=== PATIENT | male | born 1960 | race Caucasian/White ===

== ENCOUNTER 2018-07-12 20:34 | Emergency (ER) | payer OTHER ==
[~2018-07-12] VITALS: Ht 185.4 cm; Wt 95.0 kg
[2018-07-12] MEDS ORDERED: normal saline 1000ML IV soln IVB ONE (21:40)
[2018-07-12] MEDS ORDERED: LORazepam 2 mg/ml vial IV ONE (21:45)
[2018-07-12 22:05] LABS: BASOPHILS % (AUTO) 0.2 % (0-1); EOSINOPHILS # (AUTO) 0.3 X10'3 (0-0.9); EOSINOPHILS % (AUTO) 2.5 % (0-6); HEMATOCRIT 48.7 % (42.0-52.0); HEMOGLOBIN 16.6 g/dl (14.0-17.9); LYMPHOCYTES # (AUTO) 1.5 X10'3 (1.1-4.8); LYMPHOCYTES % (AUTO) 11.9 % (21-51); MEAN CORPUSCULAR VOLUME 85.2 FL (78-98); MEAN PLATELET VOLUME 8.6 FL (7.4-10.4); MONOCYTES # (AUTO) 0.4 X10'3 (0-0.9); MONOCYTES % (AUTO) 3.4 % (2-12); NEUTROPHILS # (AUTO) 10.4 X10'3 (1.8-7.7); PLATELET COUNT 271 X10'3 (140-440); RED BLOOD COUNT 5.72 X10'6 (4.70-6.10); RED CELL DISTRIBUTION WIDTH 14.1 % (11.5-14.5); WHITE BLOOD COUNT 12.7 X10'3 (4.5-11.0)
[2018-07-12 22:21] LABS: ALANINE AMINOTRANSFERASE 34 U/L (12-78); ALBUMIN 3.5 G/DL (3.4-5.0); ALBUMIN/GLOBULIN RATIO 0.9 (1.1-1.5); ALKALINE PHOSPHATASE 81 IU/L (46-116); ANION GAP 10 (8-16); ASPARTATE AMINO TRANSFERASE 19 U/L (10-37); BILIRUBIN,TOTAL 0.6 MG/DL (0.1-1.0); BLOOD UREA NITROGEN 16 MG/DL (7-18); BUN/CREATININE RATIO 14.7 (5.4-32.0); CALCIUM 9.9 MG/DL (8.5-10.1); CHLORIDE 101 MMOL/L (99-107); CREATININE 1.09 MG/DL (0.60-1.10); GLUCOSE 161 MG/DL (70-104); POTASSIUM 4.5 MMOL/L (3.5-5.1); SODIUM 138 MMOL/L (135-145); TOTAL CARBON DIOXIDE 27.4 MMOL/L (24-32); TOTAL PROTEIN 7.3 G/DL (6.4-8.2); eGFR 70 ML/MIN
[2018-07-12 22:26] LABS: ACETAMINOPHEN < 2.0 UG/ML (10-30); ETHANOL < 0.010 GM/DL (0.0-0.010)
[2018-07-12 22:33] LABS: LARGE PLATELETS MODERATE; PLATELET ESTIMATE NORMAL
[2018-07-12] MEDS ORDERED: LORazepam 1 MG tablet PO ONE (22:55)
[2018-07-12 23:23] LABS: CLARITY,URINE CLEAR (Clear); COLOR,URINE YELLOW (Yellow); GLUCOSE, URINE NEGATIVE (Neg); KETONES,URINE NEGATIVE (Neg); LEUKOCYTE ESTERASE ,URINE NEGATIVE (Neg); NITRITES, URINE NEGATIVE (Neg); OCCULT BLOOD,URINE NEGATIVE (Neg); PROTEIN,URINE NEGATIVE (Neg); UROBILINOGEN,URINE 0.2 E.U/dL (0.2-1.0)
[2018-07-12 23:29] LABS: UA COLLECTION TYPE URINAL
[2018-07-12 23:36] LABS: URINE AMPHETAMINE SCREEN NEGATIVE (Neg); URINE BARBITUATE SCREEN NEGATIVE (Neg); URINE BENZODIAZEPINES SCREEN NEGATIVE (Neg); URINE CANNABINOID SCREEN POSITIVE (Neg); URINE COCAINE SCREEN NEGATIVE (Neg); URINE METHADONE SCREEN NEGATIVE (Neg); URINE OPIATE SCREEN NEGATIVE (Neg); URINE PHENCYCLIDINE SCREEN NEGATIVE (Neg)
[2018-07-12 23:54] VITALS: BP 127/79
== END 2018-07-12 23:58 | disposition home or self-care (01) ==
LOC: ER 20:35
DX: T40.7X1A Poisoning by cannabis (derivatives), accidental (unintentional), initial encounter (principal); J45.909 Unspecified asthma, uncomplicated; F41.9 Anxiety disorder, unspecified; Y92.9 Unspecified place or not applicable
CPT/HCPCS: 36415; 80053; 80305; 80320; 80329; 81003; 85025; 93005; 99285

== ENCOUNTER 2021-11-08 09:15 | Inpatient (IN) | payer BC, OTHER ==
[~2021-11-08] VITALS: Ht 182.9 cm; Wt 82.2 kg
[2021-11-08 09:49] LABS: BASOPHILS % (AUTO) 0.4 % (0-1); EOSINOPHILS # (AUTO) 0.5 X10'3 (0-0.9); HEMATOCRIT 42.3 % (42.0-52.0); HEMOGLOBIN 14.6 g/dl (14.0-17.9); LYMPHOCYTES # (AUTO) 1.4 X10'3 (1.1-4.8); LYMPHOCYTES % (AUTO) 23.8 % (21-51); MEAN CORPUSCULAR HEMOGLOBIN 29.3 PG (27.0-31.0); MEAN CORPUSCULAR HGB CONC 34.5 g/dL (33.0-36.5); MEAN CORPUSCULAR VOLUME 84.9 FL (78-98); MEAN PLATELET VOLUME 7.8 FL (7.4-10.4); MONOCYTES # (AUTO) 0.7 X10'3 (0-0.9); MONOCYTES % (AUTO) 11.3 % (2-12); NEUTROPHILS # (AUTO) 3.3 X10'3 (1.8-7.7); NEUTROPHILS % (AUTO) 55.5 % (42-75); PLATELET COUNT 335 X10'3 (140-440); RED BLOOD COUNT 4.98 X10'6 (4.70-6.10); WHITE BLOOD COUNT 5.9 X10'3 (4.5-11.0)
[2021-11-08 10:02] LABS: CLARITY,URINE CLEAR (Clear); COLOR,URINE YELLOW (Yellow); GLUCOSE, URINE NEGATIVE (Neg); KETONES,URINE NEGATIVE (Neg); LEUKOCYTE ESTERASE ,URINE NEGATIVE (Neg); NITRITES, URINE NEGATIVE (Neg); OCCULT BLOOD,URINE SMALL (Neg); PROTEIN,URINE NEGATIVE (Neg); UROBILINOGEN,URINE 0.2 E.U/dL (0.2-1.0)
[2021-11-08 10:03] LABS: UA COLLECTION TYPE STRAIGHT CATH
[2021-11-08 10:09] LABS: BACTERIA,URINE NONE SEEN /HPF (Neg)
[2021-11-08 10:10] LABS: MUCUS STRANDS FEW /LPF (Neg); SQUAMOUS EPITHELIAL CELL,UR FEW /LPF (FEW); WBC CLUMPS,URINE FEW /HPF (NEGATIVE)
[2021-11-08 10:16] LABS: ALANINE AMINOTRANSFERASE 20 U/L (12-78); ALBUMIN 3.3 G/DL (3.4-5.0); ALBUMIN/GLOBULIN RATIO 0.8 (1.1-1.5); ALKALINE PHOSPHATASE 74 IU/L (46-116); ANION GAP 7 (8-16); ASPARTATE AMINO TRANSFERASE 13 U/L (10-37); BILIRUBIN,TOTAL 0.5 MG/DL (0.1-1.0); BLOOD UREA NITROGEN 14 MG/DL (7-18); CALCIUM 9.1 MG/DL (8.5-10.1); CHLORIDE 104 MMOL/L (99-107); CREATININE 1.27 MG/DL (0.60-1.10); GLUCOSE 118 MG/DL (70-104); LIPASE 189 U/L (73-393); POTASSIUM 3.8 MMOL/L (3.5-5.1); SODIUM 140 MMOL/L (135-145); TOTAL CARBON DIOXIDE 28.8 MMOL/L (24-32); TOTAL PROTEIN 7.5 G/DL (6.4-8.2); eGFR 58 ML/MIN
[2021-11-08] MEDS ORDERED: cephalexin 500mg capsule PO ONE (10:35)
[2021-11-08] MEDS ORDERED: ondansetron/PF 4mg/2ml inj IV ONE ×2 (10:40→12:05)
[2021-11-08] MEDS: morphine 4 MG/ML inj SYRINge IV PRN ×4 (10:44→18:36)
--- NOTE | 2021-11-08 10:54 | NUR ---
TO CT AT THIS TIME.
[2021-11-08] MEDS ORDERED: CefTRIAXone 2gm/D5W 50ml BAG 50 ML IV ONE (12:05)
[2021-11-08] MEDS ORDERED: VENL150C2 PO (12:26)
[2021-11-08] MEDS ORDERED: FLUT1DIS15 INH (12:26)
[2021-11-08] MEDS ORDERED: CHOL200012 PO (12:26)
[2021-11-08] MEDS ORDERED: PRAZ2CAP2 PO (12:26)
[2021-11-08] MEDS ORDERED: ONDA8TAB13 PO (12:26)
[2021-11-08] MEDS ORDERED: FLO0.4C PO (12:26)
[2021-11-08] MEDS ORDERED: ALBU8HFA PO (12:26)
[2021-11-08] MEDS ORDERED: ondansetron 4mg rapidly disintigrating tab PO PRN (12:55)
[2021-11-08] MEDS ORDERED: acetaminophen 650mg rectal suppository RC PRN (12:55)
[2021-11-08] MEDS ORDERED: magnesium 4gm in 100ml NS 100 ML IV PRN (12:55)
[2021-11-08] MEDS ORDERED: magnesium hydroxide 30ml (MOM) UD suspension PO PRN (12:55)
[2021-11-08] MEDS ORDERED: ondansetron/PF 4mg/2ml inj IV PRN (12:55)
[2021-11-08] MEDS ORDERED: potassium Cl 20 mEq SR tablet PO PRN ×2 (12:55)
[2021-11-08] MEDS ORDERED: acetaminophen 325mg tablet PO PRN ×2 (12:55)
[2021-11-08] MEDS ORDERED: HYDROmorphone/PF 0.2 MG/ML SYRINGE IV PRN (12:55)
[2021-11-08] MEDS ORDERED: metoclopramide 5 mg/ml inj IV PRN (12:55)
[2021-11-08] MEDS ORDERED: magnesium 2GM in 50ml NS 50 ML IV PRN (12:55)
[2021-11-08] MEDS ORDERED: HYDROcodone/acetaminophen 5mg/325mg tablet PO PRN (12:55)
[2021-11-08] MEDS ORDERED: mag hydrox/Alum hydrox/simeth 30ml oral suspension PO PRN (12:55)
[2021-11-08] MEDS ORDERED: bisacodyl 10mg suppository rectal RC PRN (12:55)
[2021-11-08] MEDS ORDERED: potassium CL 10mEq/100ml bag 100 ML IV PRN (12:55)
[2021-11-08] MEDS ORDERED: magnesium Cl slow-release 64mg tablet PO PRN (12:55)
[2021-11-08] MEDS: normal saline 1000ml 1,000 ML IV SCH ×2 (13:16→23:03)
[2021-11-08] MEDS: tamsulosin 0.4mg capsule PO SCH ×2 (13:16→20:21)
[2021-11-08 13:30] LABS: POTASSIUM 3.9 MMOL/L (3.5-5.1)
[2021-11-08 13:34] LABS: APTT 29 SECONDS (22-32)
[2021-11-08] MEDS ORDERED: albuterol 2.5 MG/3 ML nebule NEB PRN (13:45)
[2021-11-08] MEDS: HYDROcodone/acetaminophen 10/325mg tab PO PRN ×2 (14:16→23:02)
[2021-11-08] MEDS ORDERED: ringers solution, lacted 1,000 ML IV ONE (15:20)
[2021-11-08] MEDS: albuterol 2.5 MG/3 ML nebule NEB SCH ×2 (16:48→20:10)
--- NOTE | 2021-11-08 18:22 | NUR ---
patient received at this time alert and verbally responsive, patient hooked up to the cardiac montior, bed in lowest position, call light in reach patient is moaning in pain
--- NOTE | 2021-11-08 19:10 | NUR ---
called to the floor for report LUBNA tellez states that she will give me a call back
--- NOTE | 2021-11-08 19:41 | NUR ---
received report for Leonarda, awaiting pt arrival. Addendum: 11/08/21 at 1941 by Sukhjinder Freire RN Amended: Links added.
[2021-11-08] MEDS: docusate sod 100mg capsule PO SCH (20:00)
[2021-11-08] MEDS ORDERED: non-formulary drug (Fluticasone/Salmeterol (Advair 500-50 Diskus) 1 PUFFS) INH SCH (20:00)
[2021-11-08] MEDS: K and/or MAG REPLACEMENT MC SCH (20:00)
[2021-11-08] MEDS: budesonide 0.5mg/2ml UD nebule IH SCH (20:11)
[2021-11-08 20:15] VITALS: BP 134/90
[2021-11-08] MEDS: HYDROmorphone inj. 0.5 MG/0.5 ML DISP.SYRIN IV PRN (20:20)
--- NOTE | 2021-11-08 20:28 | NUR ---
turns self with ease, c/o pain, and occ sharp abd pain, bladder scanned shows 180ml urine, has not voided since st at 10am. pt will try after pain medication and md will be notified if unable to void. pt wants preop shower in early am not tonight, d/t pain. Addendum: 11/08/21 at 2028 by Sukhjinder Freire RN Amended: Links added.
[2021-11-08] MEDS ORDERED: prazosin 1mg capsule PO SCH (21:00)
[2021-11-08] MEDS ORDERED: temazepam 15mg capsule PO PRN (21:00)
[2021-11-08 22:08] VITALS: BP 137/81
--- NOTE | 2021-11-08 22:10 | NUR ---
PREOP EKG DONE, TO READ, BUT STATES ST ELEVATION IN NOTES. PT VSS DENIES ANY CHEST PAIN, SOB, ARM PAIN OR UPPER BACK PAIN. ALL PAIN IS IN RIGHT FLANK. WAITING FOR EKG RESULTS FROM MD. Addendum: 11/08/21 at 2212 by Sukhjinder Freire RN Amended: Links added.
[2021-11-08 23:25] VITALS: BP 137/89
[2021-11-09] VITALS (9 sets, daily range): BP systolic 126–151; BP diastolic 76–113
[2021-11-09] MEDS: HYDROmorphone inj. 0.5 MG/0.5 ML DISP.SYRIN IV PRN ×3 (00:24→12:27)
--- NOTE | 2021-11-09 00:30 | NUR ---
maalox given for indigestion. per pt request, had large emesis with maalox and grn emesis. wilda burnett, pt states feeling better now, declined additional maalox. cool compress given. Addendum: 11/09/21 at 0048 by Sukhjinder Freire RN Amended: Links added.
[2021-11-09] MEDS: HYDROcodone/acetaminophen 10/325mg tab PO PRN (02:43)
[2021-11-09] MEDS: albuterol 2.5 MG/3 ML nebule NEB SCH ×3 (02:58→15:00)
[2021-11-09] MEDS ORDERED: famotidine 20mg tablet PO ONE (06:00)
--- NOTE | 2021-11-09 06:32 | NUR ---
Problems reprioritized. Patient report given, questions answered & plan of care reviewed with LUBNA Solis. Addendum: 11/09/21 at 0633 by Sukhjinder Freire RN Amended: Links added.
[2021-11-09 06:40] LABS: BASOPHILS % (AUTO) 0.5 % (0-1); EOSINOPHILS # (AUTO) 0.3 X10'3 (0-0.9); HEMATOCRIT 42.3 % (42.0-52.0); HEMOGLOBIN 14.4 g/dl (14.0-17.9); LYMPHOCYTES # (AUTO) 1.8 X10'3 (1.1-4.8); LYMPHOCYTES % (AUTO) 19.2 % (21-51); MEAN CORPUSCULAR HEMOGLOBIN 29.2 PG (27.0-31.0); MEAN CORPUSCULAR HGB CONC 34.1 g/dL (33.0-36.5); MEAN CORPUSCULAR VOLUME 85.6 FL (78-98); MEAN PLATELET VOLUME 8.4 FL (7.4-10.4); MONOCYTES # (AUTO) 1.2 X10'3 (0-0.9); MONOCYTES % (AUTO) 13.1 % (2-12); NEUTROPHILS # (AUTO) 5.9 X10'3 (1.8-7.7); NEUTROPHILS % (AUTO) 64.2 % (42-75); PLATELET COUNT 346 X10'3 (140-440); RED BLOOD COUNT 4.94 X10'6 (4.70-6.10); RED CELL DISTRIBUTION WIDTH 13.8 % (11.5-14.5); WHITE BLOOD COUNT 9.2 X10'3 (4.5-11.0)
[2021-11-09 06:53] LABS: ALANINE AMINOTRANSFERASE 18 U/L (12-78); ALBUMIN 3.2 G/DL (3.4-5.0); ALBUMIN/GLOBULIN RATIO 0.8 (1.1-1.5); ALKALINE PHOSPHATASE 77 IU/L (46-116); ANION GAP 11 (8-16); ASPARTATE AMINO TRANSFERASE 17 U/L (10-37); BILIRUBIN,TOTAL 0.5 MG/DL (0.1-1.0); BLOOD UREA NITROGEN 13 MG/DL (7-18); BUN/CREATININE RATIO 9.1 (5.4-32.0); CALCIUM 7.9 MG/DL (8.5-10.1); CHLORIDE 103 MMOL/L (99-107); CREATININE 1.43 MG/DL (0.60-1.10); GLUCOSE 116 MG/DL (70-104); MAGNESIUM 1.8 MG/DL (1.5-2.4); POTASSIUM 3.6 MMOL/L (3.5-5.1); SODIUM 138 MMOL/L (135-145); TOTAL CARBON DIOXIDE 24.1 MMOL/L (24-32); TOTAL PROTEIN 7.1 G/DL (6.4-8.2); eGFR 51 ML/MIN
[2021-11-09] MEDS ORDERED: iohexol 300 MG/1 ML 50ml polymer ONE (06:59)
--- NOTE | 2021-11-09 07:10 | NUR ---
patient left for surgery no distress noted at this time.
[2021-11-09] MEDS ORDERED: morphine 4 MG/ML inj SYRINge IV PRN (07:15)
[2021-11-09] MEDS ORDERED: labetalol 20mg/4ml (5mg/ml) syringe IV PRN (07:15)
[2021-11-09] MEDS ORDERED: ondansetron/PF 4mg/2ml inj IV PRN (07:15)
[2021-11-09] MEDS ORDERED: midazolam 1 mg/ML 2ml injection ONE (07:15)
[2021-11-09] MEDS ORDERED: hydrALAZINE 20mg/ml inj. IV PRN (07:15)
[2021-11-09] MEDS ORDERED: ringers solution, lacted 1,000 ML IV SCH (07:15)
[2021-11-09] MEDS ORDERED: morphine 2 MG/ML inj. syringe IV PRN (07:15)
[2021-11-09] MEDS ORDERED: fentaNYL/PF 50MCG/1 ML 2ML syringe IV PRN ×2 (07:15)
[2021-11-09] MEDS ORDERED: ondansetron/PF 4mg/2ml inj ONE (07:17)
[2021-11-09] MEDS ORDERED: LIDOcaine 2% (20mg/ml) 5ml vial ONE (07:17)
[2021-11-09] MEDS ORDERED: succinylcholine 20mg/ml inj IV ONE (07:17)
[2021-11-09] MEDS ORDERED: dexamethasone sod phosphate 4mg/ml inj. ONE (07:17)
[2021-11-09] MEDS ORDERED: propofol inj 20 ML IV ONE (07:17)
[2021-11-09] MEDS ORDERED: sevoflurane 250ml liquid IH ONE (07:25)
[2021-11-09] MEDS ORDERED: venlafaxine XR 75mg capsule (Q24H) PO SCH (08:00)
[2021-11-09] MEDS ORDERED: tamsulosin 0.4mg capsule PO SCH (08:00)
[2021-11-09] MEDS ORDERED: CefTRIAXone/D5W-Rocephin 1gm 50 ML IV SCH (08:00)
[2021-11-09] MEDS: K and/or MAG REPLACEMENT MC SCH (08:00)
[2021-11-09] MEDS: docusate sod 100mg capsule PO SCH (08:00)
--- NOTE | 2021-11-09 08:18 | NUR ---
Received from OR via , accompanied by Anesthesiologist MILES and report given by Anesthesiolgist. JAQUELINETIENT WITH 20G PIV IN RIGHT UE RUNNING LR AT 100. ALISON MORA. JOSE ANGEL. SUZYNET WITH 10L MASK ON WITH 100% SATURATIONS. PATIENT COUGHING AND BRINGING UP SPUTUM. CLEAR... Addendum: 11/09/21 at 0835 by Semaj Cabrera RN, RN Amended: Links added.
[2021-11-09] MEDS: budesonide 0.5mg/2ml UD nebule IH SCH (08:30)
[2021-11-09] MEDS: normal saline 1000ml 1,000 ML IV SCH ×2 (08:55→09:37)
--- NOTE | 2021-11-09 09:18 | NUR ---
/SIMIN/PCU/ORTHO/ICU FLOOR. VSS. DRESSINGS INTACT. BED LOW, CALL LIGHT PRESENT AND 2 RAILS UP. RN PRESENT TO ACCEPT CARE OF PATIENT AND REPORT HAS BEEN CALLED. ALL QUESTIONS ANSWERED TO ACCEPTING RN. VSS. DECLINES FURTHER PAIN MEDS. ERRETTE AWARE PATIENT HAS ARRIVED TO ROOM 350. BED LOW AND AFTER SCHOOL TUTOR PRESENT TO SET UP VS. NO DRAINAGE AND PATIENT WITH TOLERABLE PAIN AT THIS TIME. Addendum: 11/09/21 at 0940 by Semaj Fontanez - LUBNA CALVO Amended: Links added.
--- NOTE | 2021-11-09 09:30 | NUR ---
Received from recovery room via , accompanied by nurse Seamj and report given by Semaj. PPATIENT WITH 20G PIV IN RIGHT UE RUNNING LR AT 100. c/o pain, pain med adminisdered as prescribed. VSS. PATient @ 3l nasal canula. PATIENT COUGHING AND BRINGING UP SPUTUM. CLEAR...
--- NOTE | 2021-11-09 11:04 | NUR ---
Message: HI RE:350B/THUM PATIENT CAME FROM SURGERY A FEW HOURS AGO NOW HE IS C/O SORE THROAT AND B/P IS 155/93, 129/101, 145/105. LUBNA MONTERROSO [id number]
[2021-11-09] MEDS ORDERED: amLODIPine 5mg tablet PO ONE (11:30)
[2021-11-09] MEDS ORDERED: CEFD300C3 PO (13:07)
[2021-11-09] MEDS ORDERED: HYDR-3965 PO (13:07)
[2021-11-09] MEDS ORDERED: LACT1CAP26 PO (13:07)
[2021-11-09] MEDS ORDERED: NOR5T PO (13:07)
[2021-11-10] MEDS ORDERED: amLODIPine 5mg tablet PO SCH (08:00)
== END 2021-11-09 15:30 | disposition home or self-care (01) | DRG 690 ==
LOC: ER 09:16 → ED HOLD 13:03 → SUR 3N 19:48
PROVIDERS: ADMIT Family Medicine; ATTEND Family Medicine
PROC: 0TC68ZZ Extirpation of Matter from Right Ureter, Via Natural or Artificial Opening Endoscopic (ICD-10-PCS; principal; 2021-11-09 07:25)
DX: N13.6 Pyonephrosis (principal); N20.2 Calculus of kidney with calculus of ureter; F12.90 Cannabis use, unspecified, uncomplicated; Z20.822 Contact with and (suspected) exposure to COVID-19; N17.9 Acute kidney failure, unspecified; I10 Essential (primary) hypertension; K21.9 Gastro-esophageal reflux disease without esophagitis; F32.A Depression, unspecified; J45.909 Unspecified asthma, uncomplicated; F41.9 Anxiety disorder, unspecified; N40.0 Benign prostatic hyperplasia without lower urinary tract symptoms; Z80.42 Family history of malignant neoplasm of prostate; Z87.442 Personal history of urinary calculi
CPT/HCPCS: 96365; 96375; 99285; Z7506; 36415; 74176; 76000; 80053; 81001; 83690; 83735; 84132; 85025; 85610; 85730; 87081; 87088; 87635; 93005; 94640; 94760; A4618; C1769; G0378; J0330; J0696; J1100; J1170; J2250; J2270; J2405; J2704; J3490; J7030; J7120; Q9967

== ENCOUNTER 2021-11-16 05:02 | Emergency (ER) | payer BC ==
[~2021-11-16] VITALS: Ht 182.9 cm; Wt 96.6 kg
[~2021-11-16 05:02] MED LIST: ALBU8HFA PO; CEFD300C3 PO; CHOL200012 PO; FLO0.4C PO; FLUT1DIS15 INH; HYDR-3965 PO; LACT1CAP26 PO; NOR5T PO; ONDA8TAB13 PO; PRAZ2CAP2 PO; VENL150C2 PO
[2021-11-16] MEDS ORDERED: ketorolac trometh inj. 60 MG/2 ML VIAL IM ONE (05:40)
[2021-11-16 06:03] LABS: BASOPHILS % (AUTO) 0.6 % (0-1); EOSINOPHILS # (AUTO) 0.7 X10'3 (0-0.9); EOSINOPHILS % (AUTO) 8.8 % (0-6); HEMATOCRIT 42.2 % (42.0-52.0); HEMOGLOBIN 14.2 g/dl (14.0-17.9); LYMPHOCYTES # (AUTO) 1.9 X10'3 (1.1-4.8); LYMPHOCYTES % (AUTO) 24.2 % (21-51); MEAN CORPUSCULAR HEMOGLOBIN 28.4 PG (27.0-31.0); MEAN CORPUSCULAR HGB CONC 33.8 g/dL (33.0-36.5); MEAN PLATELET VOLUME 7.4 FL (7.4-10.4); MONOCYTES # (AUTO) 0.7 X10'3 (0-0.9); NEUTROPHILS # (AUTO) 4.5 X10'3 (1.8-7.7); NEUTROPHILS % (AUTO) 57.4 % (42-75); PLATELET COUNT 381 X10'3 (140-440); RED BLOOD COUNT 5.02 X10'6 (4.70-6.10); RED CELL DISTRIBUTION WIDTH 14.2 % (11.5-14.5); WHITE BLOOD COUNT 7.8 X10'3 (4.5-11.0)
[2021-11-16 06:04] LABS: CLARITY,URINE SLIGHTLY CLOUDY (Clear); COLOR,URINE YELLOW (Yellow); GLUCOSE, URINE NEGATIVE (Neg); KETONES,URINE NEGATIVE (Neg); LEUKOCYTE ESTERASE ,URINE NEGATIVE (Neg); NITRITES, URINE NEGATIVE (Neg); OCCULT BLOOD,URINE LARGE (Neg); PH,URINE 5.5 (4.8-8.0); PROTEIN,URINE 100 mg/dl (Neg); UROBILINOGEN,URINE 0.2 E.U/dL (0.2-1.0)
[2021-11-16 06:14] LABS: UA COLLECTION TYPE CLN CATCH MIDSTREAM
[2021-11-16 06:23] LABS: ALANINE AMINOTRANSFERASE 21 U/L (12-78); ALBUMIN 3.1 G/DL (3.4-5.0); ALBUMIN/GLOBULIN RATIO 0.9 (1.1-1.5); ALKALINE PHOSPHATASE 86 IU/L (46-116); ANION GAP 10 (8-16); ASPARTATE AMINO TRANSFERASE 10 U/L (10-37); BILIRUBIN,TOTAL 0.2 MG/DL (0.1-1.0); BLOOD UREA NITROGEN 18 MG/DL (7-18); BUN/CREATININE RATIO 17.3 (5.4-32.0); CALCIUM 8.9 MG/DL (8.5-10.1); CHLORIDE 105 MMOL/L (99-107); CREATININE 1.04 MG/DL (0.60-1.10); GLUCOSE 109 MG/DL (70-104); SODIUM 140 MMOL/L (135-145); TOTAL CARBON DIOXIDE 24.9 MMOL/L (24-32); TOTAL PROTEIN 6.7 G/DL (6.4-8.2); eGFR 73 ML/MIN
[2021-11-16 06:33] LABS: RBC,URINE TNTC /HPF (0-2); WBC,URINE 20-30 /HPF (0-4)
[2021-11-16 06:34] LABS: BACTERIA,URINE FEW /HPF (Neg); CAL OXALATE CRYSTALS 1+ /HPF (NEGATIVE); SQUAMOUS EPITHELIAL CELL,UR FEW /LPF (FEW); WBC CLUMPS,URINE FEW /HPF (NEGATIVE)
[2021-11-16 06:35] VITALS: BP 107/78
--- NOTE | 2021-11-16 06:40 | NUR ---
pt states," pain about an 8-9 on painscale. i've been peeing frequently, and it wilson really bad." will inform dr. mccain.
[2021-11-16] MEDS ORDERED: phenazopyridine 100mg tablet PO ONE (06:45)
--- NOTE | 2021-11-16 06:45 | NUR ---
please see new order
[2021-11-16] MEDS ORDERED: PHEN-716 PO (06:53)
[2021-11-16] MEDS ORDERED: CEPH-585 PO (06:53)
[2021-11-16] MEDS ORDERED: cephalexin 500mg capsule PO ONE (06:55)
--- NOTE | 2021-11-18 10:36 | NUR ---
Patient notified regarding need to be placed on a different antibiotic per Dr. Paulino Goodwin. RX: Fosfomycin 3 g PO x1 0 refills Patient requested medication to be called into [facility] in [place]. Called and left voicemail message for new medication.
== END 2021-11-16 07:49 | disposition home or self-care (01) ==
LOC: ER 05:03
DX: N30.90 Cystitis, unspecified without hematuria (principal); R11.0 Nausea; M54.50 Low back pain, unspecified; J45.909 Unspecified asthma, uncomplicated; F41.9 Anxiety disorder, unspecified; F12.90 Cannabis use, unspecified, uncomplicated; Z87.442 Personal history of urinary calculi; Z79.2 Long term (current) use of antibiotics; Z79.899 Other long term (current) drug therapy
CPT/HCPCS: 36415; 80053; 81001; 85025; 87088; 96372; 99283; J1885; 87077; 87186

== ENCOUNTER 2021-12-02 03:18 | Observation (INO) | payer BC ==
[~2021-12-02] VITALS: Ht 182.9 cm; Wt 97.7 kg
[~2021-12-02 03:18] MED LIST changes: +CEPH-585 PO; +PHEN-716 PO; -VENL150C2 PO; +VENL150C4 PO
[2021-12-02] MEDS ORDERED: morphine 4 MG/ML inj SYRINge IV ONE ×2 (04:10→06:25)
[2021-12-02] MEDS ORDERED: ondansetron/PF 4mg/2ml inj IV ONE (04:10)
[2021-12-02 04:57] LABS: ALANINE AMINOTRANSFERASE 26 U/L (12-78); ALBUMIN 3.5 G/DL (3.4-5.0); ALBUMIN/GLOBULIN RATIO 0.9 (1.1-1.5); ALKALINE PHOSPHATASE 90 IU/L (46-116); ANION GAP 11 (8-16); ASPARTATE AMINO TRANSFERASE 17 U/L (10-37); BILIRUBIN,TOTAL 0.5 MG/DL (0.1-1.0); BLOOD UREA NITROGEN 13 MG/DL (7-18); BUN/CREATININE RATIO 15.5 (5.4-32.0); CHLORIDE 102 MMOL/L (99-107); CREATININE 0.84 MG/DL (0.60-1.10); GLUCOSE 118 MG/DL (70-104); MONOCYTES # (AUTO) 0.9 X10'3 (0-0.9); PLATELET COUNT 321 X10'3 (140-440); POTASSIUM 3.5 MMOL/L (3.5-5.1); SODIUM 139 MMOL/L (135-145); TOTAL CARBON DIOXIDE 26.4 MMOL/L (24-32); TOTAL PROTEIN 7.4 G/DL (6.4-8.2); WHITE BLOOD COUNT 9.9 X10'3 (4.5-11.0); eGFR > 90 ML/MIN
[2021-12-02 05:00] LABS: BASOPHILS # (AUTO) 0.1 X10'3 (0-0.2); BASOPHILS % (AUTO) 0.5 % (0-1); EOSINOPHILS # (AUTO) 0.7 X10'3 (0-0.9); EOSINOPHILS % (AUTO) 6.7 % (0-6); HEMATOCRIT 42.1 % (42.0-52.0); HEMOGLOBIN 14.3 g/dl (14.0-17.9); LYMPHOCYTES % (AUTO) 20.2 % (21-51); MEAN CORPUSCULAR HEMOGLOBIN 28.5 PG (27.0-31.0); MEAN CORPUSCULAR VOLUME 83.7 FL (78-98); MEAN PLATELET VOLUME 9.3 FL (7.4-10.4); MONOCYTES % (AUTO) 9.5 % (2-12); NEUTROPHILS # (AUTO) 6.2 X10'3 (1.8-7.7); NEUTROPHILS % (AUTO) 63.1 % (42-75); RED BLOOD COUNT 5.02 X10'6 (4.70-6.10); RED CELL DISTRIBUTION WIDTH 14.2 % (11.5-14.5)
[2021-12-02 05:54] LABS: CLARITY,URINE CLEAR (Clear); COLOR,URINE YELLOW (Yellow); GLUCOSE, URINE NEGATIVE (Neg); KETONES,URINE TRACE mg/dl (Neg); LEUKOCYTE ESTERASE ,URINE NEGATIVE (Neg); NITRITES, URINE NEGATIVE (Neg); OCCULT BLOOD,URINE NEGATIVE (Neg); PROTEIN,URINE NEGATIVE (Neg); UROBILINOGEN,URINE 0.2 E.U/dL (0.2-1.0)
[2021-12-02 06:00] LABS: UA COLLECTION TYPE CLN CATCH MIDSTREAM
[2021-12-02] MEDS ORDERED: GLYC-23 RC ×2 (06:28)
[2021-12-02] MEDS ORDERED: POLY119P2 PO ×2 (06:28)
[2021-12-02] MEDS ORDERED: HYDROmorphone 1 mg/ml syringe IV ONE (06:35)
--- NOTE | 2021-12-02 07:16 | NUR ---
Pt. appears to be in distress due to lower abdomen pain 06/11. 4 MG morphine given now reports pain 11/09.
[2021-12-02] MEDS ORDERED: ondansetron/PF 4mg/2ml inj IV PRN (07:55)
[2021-12-02] MEDS ORDERED: normal saline 1000ml 1,000 ML IV SCH (07:55)
[2021-12-02] MEDS ORDERED: acetaminophen 325mg tablet PO PRN (07:55)
[2021-12-02] MEDS ORDERED: magnesium 4gm in 100ml NS 100 ML IV PRN (07:55)
[2021-12-02] MEDS ORDERED: potassium Cl 20 mEq SR tablet PO PRN ×2 (07:55)
[2021-12-02] MEDS ORDERED: magnesium 2GM in 50ml NS 50 ML IV PRN (07:55)
[2021-12-02] MEDS ORDERED: potassium CL 10mEq/100ml bag 100 ML IV PRN (07:55)
[2021-12-02] MEDS ORDERED: mag hydrox/Alum hydrox/simeth 30ml oral suspension PO PRN (07:55)
[2021-12-02] MEDS ORDERED: magnesium hydroxide 30ml (MOM) UD suspension PO PRN (07:55)
[2021-12-02] MEDS ORDERED: magnesium Cl slow-release 64mg tablet PO PRN (07:55)
[2021-12-02] MEDS ORDERED: HYDROmorphone 1 mg/ml syringe IV PRN (08:00)
[2021-12-02] MEDS ORDERED: docusate sod 100mg capsule PO SCH (08:00)
[2021-12-02] MEDS ORDERED: K and/or MAG REPLACEMENT MC SCH (08:00)
[2021-12-02] MEDS ORDERED: HYDROmorphone inj. 0.5 MG/0.5 ML DISP.SYRIN IV PRN (08:05)
[2021-12-02] MEDS ORDERED: oxyCODONE/APAP 5-325mg tablet PO PRN (08:40)
[2021-12-02] MEDS ORDERED: pantoprazole 40mg Tablet.DR PO SCH (08:45)
[2021-12-02] MEDS: oxyCODONE/APAP 10/325mg tablet PO PRN ×2 (09:19→17:35)
--- NOTE | 2021-12-02 12:24 | NUR ---
LUNCH TRAY AT BEDSIDE,PT AWAKE,NO REPORTED COMPLAINTS AT THIS TIME.
--- NOTE | 2021-12-02 12:49 | NUR ---
REFUSED LUNCH AT THIS TIME.
[2021-12-02] MEDS ORDERED: OXYC1TAB17 PO ×3 (14:13→18:11)
[2021-12-02 18:34] VITALS: BP 131/82
[2021-12-02] MEDS ORDERED: enoxaparin 40mg/0.4ml syringe SUBCUT SCH (21:00)
== END 2021-12-02 17:00 | disposition home or self-care (01) ==
LOC: ER 03:19 → ED HOLD 07:56 → UNDODISOB 20:48
PROVIDERS: ADMIT Family Medicine; ATTEND Family Medicine
DX: N20.0 Calculus of kidney (principal); N40.0 Benign prostatic hyperplasia without lower urinary tract symptoms; K29.70 Gastritis, unspecified, without bleeding; K59.00 Constipation, unspecified; K57.30 Diverticulosis of large intestine without perforation or abscess without bleeding; J45.909 Unspecified asthma, uncomplicated; F32.A Depression, unspecified; I10 Essential (primary) hypertension; Z79.51 Long term (current) use of inhaled steroids; Z87.442 Personal history of urinary calculi; Z79.899 Other long term (current) drug therapy
CPT/HCPCS: 74176; 80053; 81003; 85025; 96361; 96374; 96375; 96376; 99284; G0378; J2270; J2405; J7030